=== PATIENT | male | born 1960 | race Caucasian/White ===

== ENCOUNTER 2021-12-08 11:23 | Outpatient (CLI) | payer OTHER ==
--- NOTE | 2021-12-08 13:35 | XRAY Report ---
PROCEDURE: Elbow 3 View LT INDICATIONS: LEFT HAND MUSCLE WEAKNESS TECHNIQUE: 3 views of the elbow were acquired. COMPARISON: None. FINDINGS: Bones: No fractures or dislocations. No suspicious bony lesions. Small ulnar enthesophyte at the t riceps insertion. Soft tissues: No elbow joint effusion. No suspicious soft tissue calcifications. IMPRESSION: No acute osseous abnormality. If symptoms persist, follow-up radiographs and/or CT or MRI may be help ful for further evaluation. Reviewed by: Celio Couch MD on 12/08/2021 1:33 PM PDT Approved by: Celio Couch MD on 12/08/2021 1:33 PM PDT Station ID: [id number]
== END 2021-12-08 11:24 | disposition home or self-care (01) ==
LOC: DI 11:23
PROVIDERS: ATTEND Naturopath
DX: R29.898 Other symptoms and signs involving the musculoskeletal system (principal); M62.81 Muscle weakness (generalized)